=== PATIENT | male | born 1950 | race Caucasian/White ===

== ENCOUNTER 2017-02-19 17:57 | Inpatient (IN) | payer OTHER ==
--- NOTE | ~2017-02-19 | CO ---
Unit #: [id number] #: [id number] Patient: AIME JIMENEZ [id number] [address] [place], [place] [address] [id number] I MR#: [id number] NAME: AIME JIMENEZ ROOM: 479 Age: 66 Sex: M Admission Date: 02/20/2017 : 1950 Attending Physician: Harvinder Lopez Jr., M.D. Primary Care Physician: Paramjit Reece M.D. Consultation Date: 02/22/2017 CONSULTATION REPORT PRE-OP DIAGNOSIS Left shoulder pain. HISTORY OF PRESENT ILLNESS Mr. Jimenez is a 66-year-old gentleman who has been admitted for treatment of a pneumoperitoneum. He sustained an injury to his shoulder prior to presentation on February 19. He awoke in the middle of the night and went to the refrigerator to get something to drink. He fell and struck his left shoulder against the refrigerator door. He is now complaining of continued and ongoing left shoulder pain. He has a history of a previous left shoulder injury, which he describes as a dislocation or separation. This morning he is examined supine in his hospital bed. He states that his pain is somewhat improved and he is noticing improving range of motion of his left shoulder. PAST MEDICAL HISTORY 1. Hypertension. 2. Hyperlipidemia. 3. Depression. PAST SURGICAL HISTORY 1. Placement of a laparoscopic gastric band and repair of a paraesophageal hiatal hernia on 12/05/2012. 2. Removal of Lap-Band with exploratory laparotomy and repair of gastric perforation and G-tube placement on 02/20/17. MEDICATIONS Home medications include Lumigan eyedrops, clonazepam, bupropion, propranolol, Abilify, diclofenac, finasteride, olmesartan, Ambien, Viibryd and [place]. ALLERGIES No known drug allergies. FAMILY HISTORY Diabetes mellitus in his parents. SOCIAL HISTORY The patient is retired. He is on disability. There is no alcohol or tobacco use. He ambulates with a cane occasionally. REVIEW OF SYSTEMS Ten systems were reviewed and are negative except as noted in the HPI. Unit #: [id number] #: [id number] Patient: AIME JIMENEZ PHYSICAL EXAMINATION GENERAL APPEARANCE: Morbidly obese gentleman examined supine in his hospital bed in no acute distress or discomfort. PSYCHIATRIC: Awake, alert and oriented to person, place and time. CARDIAC: Regular rate and rhythm. PULMONARY: No increased work of breathing. HEENT: Normocephalic, atraumatic cranium. NECK: Supple. No lymphadenopathy. No JVD. ABDOMEN: He has a dressing, which is clean, dry and intact. Further exam is deferred. NEUROLOGIC: Intact motor and sensory function in the axillary, medial, ulnar and radial nerves in the left upper extremity. SKIN: No overlying skin changes. No erythema, induration. No ecchymosis. MUSCULOSKELETAL: He has forward elevation greater than 90 degrees with the arm off the bed. He has negative cross-body adduction. He reaches comfortably the top of his head. He is not tender over the AC joint but has a slight stepoff. DIAGNOSTIC STUDIES IMAGING: Plain film radiographs reviewed of the left shoulder. These demonstrate widening of the AC joint with a slight separation, which I would describe as a grade 2 versus 3 on these radiographs. IMPRESSION A 66-year-old gentleman with a history of remote left AC separation. PLAN I think he has aggravated or exacerbated his underlying condition. There appears to be no further displacement of his AC joint. There is no intervention required or needed at this time. I anticipate that his symptoms should resolve uneventfully. If he continues to have shoulder pain or loss of range of motion, we would be happy to see him back in the office as an outpatient for injection if needed and a referral to physical therapy. Thank you for the consult. Dictated by... Dave Gabriel M.D. RUSSELL/farhan TD: 02/22/2017 11:24 JOB #: [id number] CONSULTATION REPORT Page 1 of 1 X Dave Gabriel MD CONSULTATION REPORT
--- NOTE | ~2017-02-19 | BMI ---
[facility] Nutrition Therapy DATE: 02/20/17 Patient: AIME JIMENEZ Physician: DIONI Address: [address] Room/Bed: [address] [place] [address], Zip: [place] [address] Admit Date: 02/20/17 Date of : [birth year] Height: 6 4 Weight: 661 300 HIGH BMI NOTE: DX: 66 yo male admitted for a fracture ANTHROPOMETRICS: Ht: 6'4" Wt: 300.5 kg (661#) BMI: 80.6 DIET: NPO INTERVENTION: 1. NPO RECOMMENDATIONS: 1. Once medically feasible, advance diet as tolerated to healthy heart +2200 kcal diet restriction to promote gradual weight loss towards healthy BMI. RD will f/u per protocol. Respectfully, Iman Rutledge, Dye Padder Operator [employer] [facility] cc: client file
--- NOTE | ~2017-02-19 | DS ---
Unit #: [id number] #: [id number] Patient: AIME JIMENEZ [id number] [address] [place], [place] [address] [id number] I MR#: [id number] NAME: AIME JIMENEZ ROOM: 479 Age: 66 Sex: M Admission Date: 02/20/2017 : 1950 Discharge Date: 02/24/2017 Attending Physician: Harvinder Lopez Jr., M.D. Referring Physician: Julio Lopez M.D. Primary Care Physician: Paramjit Reece M.D. DISCHARGE SUMMARY ADMITTING PHYSICIAN Dr. Harvinder Lopez. CONSULTATIONS 1. Hospitalists. 2. Dr. Gabriel with Orthopaedics. ADMITTING DIAGNOSIS Abdominal pain. DISCHARGE DIAGNOSIS Gastric perforation. SECONDARY DIAGNOSIS Left shoulder pain secondary to left acromioclavicular separation. OTHER DIAGNOSES 1. Hypertension. 2. Depression. PROCEDURE PERFORMED On 02/20/2017, he underwent diagnostic laparoscopy with exploratory laparotomy, removal of gastric band and repair of gastric perforation. BRIEF HOSPITAL COURSE This is a 66-year-old gentleman who sustained a fall two days prior to admission and subsequently developed some severe abdominal pain. He went to [facility] and was noted to have pneumoperitoneum. Because he had a lap band, he was transferred here for further management. Once evaluated here, he was taken for surgery. He was noted to have gastric perforation. This seemed to be unrelated to his lap band. The band was removed because of associated contamination. Postoperatively, he had a fairly uneventful course. He had a swallow study done which did not demonstrate any leak. His GT was clamped and he was started on clears and then advanced to full liquids, which he was tolerating prior to discharge. We also had Orthopaedics see him because of some left shoulder pain and he has a chronic left AC separation. We also consulted hospitalists to manage his medical problems. DISPOSITION Transfer to [facility]. DIET He is to be on a full liquid diet for three days and then resume his home Unit #: [id number] #: [id number] Patient: AIME JIMENEZ diet as tolerated. His G-tube should be clamped. ACTIVITY As tolerated. We will continue with physical therapy and occupational therapy. He is to follow up with Dr. Gama next to have his kandy removed. It is okay for him to shower and he is to continue his home medications. Dictated by... Javed Hansen III, M.D. VCL/alfreda TD: 02/24/2017 09:55 JOB #: [id number] DISCHARGE SUMMARY Page 1 of 1 X Javed Hansen III, MD X DISCHARGE SUMMARY
--- NOTE | ~2017-02-19 | OR ---
Unit #: [id number] #: [id number] Patient: AIME JIMENEZ [id number] [place] [id number] [facility]. [place], [place] [address] [id number] David MR#: [id number] NAME: AIME JIMENEZ ROOM: 479 Date of Procedure: 02/20/2017 Admission Date: 02/20/2017 Surgeon: Sanjeev Gama M.D. : 1950 Attending Physician: Harvinder Lopez Jr., M.D. Referring Physician: Julio Lopez M.D. Primary Care Physician: Paramjit Reece M.D. OPERATIVE REPORT PREOPERATIVE DIAGNOSIS Pneumoperitoneum. POSTOPERATIVE DIAGNOSIS 0.5 cm gastrotomy at gastric fundus. PROCEDURES PERFORMED 1. Diagnostic laparoscopy. 2. Removal of Lap-Band and Lap-Band port. 3. Exploratory laparotomy. 4. Repair of gastric fundus perforation. 5. Gastrostomy tube placement. VIBRATOR EQUIPMENT TESTER Cosme Nj M.D. ANESTHESIA General endotracheal anesthesia. ESTIMATED BLOOD LOSS 100 mL. IV FLUIDS 1500 crystalloid. COMPLICATIONS None. INDICATIONS FOR PROCEDURE The patient is a 66-year-old gentleman, who has had a long-term band, who presents after a fall at his house 2 days ago. He started with left shoulder pain and left upper quadrant abdominal pain. Workup showed pneumoperitoneum without inflammation around the band or tubing. He presents for exploration. DESCRIPTION OF PROCEDURE The patient was taken to the operating theater and placed in a supine position. General anesthesia was induced. The abdomen was prepped and draped. A 10-mm Visiport was placed in the left lower quadrant without difficulty. The abdomen was insufflated to 15 mmHg with CO2. Under direct vision, I identified the band tubing, which appeared to be without infection. There was some greenish yellowish fluid that looked somewhat Unit #: [id number] #: [id number] Patient: AIME JIMENEZ bilious or gastric over the liver as well as the left upper quadrant. I then placed another 5-mm port. I was able to lift the liver up and identify the band buckle. Again, this did not appear to be infected. Thus, I assumed perforated stomach versus ulcer. We thus performed a midline laparotomy without difficulty. The general inspection revealed fluid up over the liver and up over the left lower quadrant. We mobilized what appeared to be some adhesions or inflammation in the left upper quadrant. I followed the band down to the buckle, unbuckled it, cut the band and removed it. There was no staining of the band consistent with an erosion. We mobilized the duodenum and did not see any abnormality. The colon and small bowel appeared normal. We then mobilized up towards the gastric fundus and identified a 0.5-cm tear at the level of suturing of the fundus to the anterior pouch of the previous gastric band. This appeared to be clean and a [id number] inflammatory event. This was repaired with two interrupted 2-0 silk sutures in an inverting-type fashion. I attempted to pass an NG tube, but it was unsuccessful on multiple attempts. Thus, due to this patient's immobility and social situation, I elected to place a gastrostomy tube. This was done using a 24-Urdu Mondragon catheter. This was placed into the anterior stomach. This was secured with the pursestring and then Witzeled into place with 2-0 silk sutures. It was tested for patency and it worked appropriately. I then placed a Roe-Guo drain over the area of our gastrotomy repair. This was brought out through a right upper quadrant incision. This was secured with 2-0 silk sutures. We irrigated thoroughly with normal saline and then closed with interrupted #1 Vicryl and kandy to the skin. The patient tolerated the procedure well and sent to recovery room in good condition. Dictated by... Bry Hernandez/jody TD: 02/21/2017 05:38 JOB #: [id number] OPERATIVE REPORT Page 1 of 1 X Sanjeev Gama MD X PROCEDURE OPERATIVE NOTE
--- NOTE | ~2017-02-19 | CO ---
Unit #: [id number] #: [id number] Patient: AIME JIMENEZ [id number] [address] [place], [place] [address] [id number] I MR#: [id number] NAME: AIME JIMENEZ ROOM: 479 Age: 66 Sex: M Admission Date: 02/20/2017 : 1950 Attending Physician: Harvinder Lopez Jr., M.D. Primary Care Physician: Paramjit Reece M.D. Requesting Physician: Kourtney Porter M.D. Consultation Date: 02/21/2017 CONSULTATION REPORT REASON FOR CONSULTATION Left shoulder pain. HISTORY OF PRESENT ILLNESS The patient is a pleasant 66-year-old who I was asked to see in consultation for left shoulder pain. The patient reports he was in his usual state of mind Monday when he woke up from sleep around 2:30 in the morning and fell against the refrigerator. He had gotten up to get something to drink. The patient denied any loss of consciousness or chest pain. Patient reports that he has had a long history of left shoulder pain. The patient was at [place] he reports in the past and was told he had a shoulder separation. The patient reports today his pain is a whole lot better. When this episode/injury happened, his pain was a 10 on a scale of 1-10. Today, his pain is a 3 or a 4 on a scale of 1-10. He denies any numbness, tingling, or weakness in his left upper extremity. He does feel like his left shoulder has improved dramatically. The patient did undergo exploratory laparotomy with removal of Lap-Band and Lap-Band port, as well as repair of gastric fundus perforation and gastrostomy tube placement. PAST MEDICAL HISTORY 1. Hypertension. 2. Hyperlipidemia. 3. Depression. 4. History of Lap-Band. PAST SURGICAL HISTORY 1. Removal of Lap-Band. 2. History of Lap-Band. 3. Repair of gastric perforation. 4. Gastrostomy tube. 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 He denies any alcohol. FAMILY HISTORY Parents both have diabetes. ALLERGIES No known drug allergies. HOME MEDICATIONS 1. Lumigan. Unit #: [id number] #: [id number] Patient: AIME JIMENEZ 2. Clonazepam. 3. Bupropion. 4. Propranolol. 5. Abilify. 6. Diclofenac. 7. Finasteride. 8. Ambien. 9. Viibryd. 10. Hydrocodone. 11. Olmesartan REVIEW OF SYSTEMS CONSTITUTIONAL: Denies any weight loss or weight gain recently. EYES: Denies any double vision or blurred vision. LUNGS: Denies any shortness of air or chronic cough. CARDIOVASCULAR: Denies any chest pain or irregular heartbeat. ABDOMEN: Admits that he had some pain but improved. MUSCULOSKELETAL: Admits to some left shoulder pain, but he admits that this is chronic. It just got worse since he bumped into the refrigerator. EXTREMITIES: He denies any numbness or tingling. NEUROLOGIC: He denied any loss of consciousness. Twelve complete systems in total were reviewed and negative other than above. DIAGNOSTIC STUDIES LABORATORY: Sodium 135, potassium 4.5, chloride 103, CO2 of 23, BUN 30, creatinine 1.3, and glucose of 143. WBC 19 and hemoglobin 14.3. IMAGING: X-rays of his left shoulder did show elevation of the distal clavicle with respect to the acromion with widening of the AC joint. ASSESSMENT Left shoulder separation. The patient does feel like this is chronic. PLAN Discussed with the patient options one which includes trying cortisone injection. The patient reports his pain is much improved. I will check with him in the morning and see that his pain continues to improve. Dictated by... Miki Oneal P.A.-C- for Bry Miner TD: 02/21/2017 22:13 JOB #: [id number] CONSULTATION REPORT Page 1 of 1 X X CONSULTATION REPORT
--- NOTE | ~2017-02-19 | CR229 ---
[facility] A Service of [facility] & [facility] RADIOLOGY TEXT RESULTS PATIENT: AIME JIMENEZ LOCATION: [place] [address]- : [birth year] UNIT #: [id number] AGE: [address]: Harvinder Lopez MD SEX: M ORDER DR: [id number] [facility] [address] [facility] [place] [facility]. [place], [place] [address] [id number] I MR#: [id number] Acc #: [id number] NAME: AIME JIMENEZ : 1950 SEX: M STUDY DATE/TIME: 02/21/2017 8:08 UNIT: [facility] [place] [facility] ROOM: [facility] STUDY DESCRIPTION: CR Shoulder Min 2 View Lt Attending Physician: Harvinder Lopez Jr., M.D. Referring Physician: Julio Lopez M.D. Ordering Physician: Sanjeev Gama M.D. Primary Care Physician: Paramjit Reece M.D. MEDICAL IMAGING REPORT This report is preliminary unless electronic signature is present EXAM Left shoulder 2 views INDICATION Shoulder pain since Monday after falling. COMPARISON No comparisons FINDINGS There is no acute fracture. There is no glenohumeral joint dislocation. There is some widening of the AC joint which may represent an AC joint injury. Please correlate with location of the patient's pain. There also appears to be some elevation of the distal clavicle with respect to the acromion. IMPRESSION There is elevation of the distal clavicle with respect to the acromion and some widening of the AC joint. The findings are suggestive of an AC joint injury. Correlate with location of patient's pain. Dictated by... Sukhdeep Griggs M.D. THIS IS AN ELECTRONICALLY VERIFIED REPORT Sukhdeep Griggs M.D. at 02/22/2017 5:12 PM Ivon TD: 02/21/2017 09:45 JOB #: [id number] MEDICAL IMAGING REPORT Page 1 of 1 COPY
--- NOTE | ~2017-02-19 | CO ---
Unit #: [id number] #: [id number] Patient: AIME JIMENEZ [id number] [place] [address] [facility]. [place], [place] [address] [id number] I MR#: [id number] NAME: AIME JIMENEZ ROOM: 479 Age: 66 Sex: M Admission Date: 02/20/2017 : 1950 Attending Physician: Harvinder Lopez Jr., M.D. Primary Care Physician: Paramjit Reece M.D. Consultation Date: 02/20/2017 CONSULTATION REPORT BRIEF HISTORY The patient is a 66-year-old gentleman who presents with acute onset of left shoulder pain and left abdominal pain after a fall two days ago. He said he fell into the handle of a refrigerator and since that time he has had increasing shoulder pain. No fevers or chills. He has had normal eating habits, no vomiting, no hematemesis. Normal bowel movements. PAST HISTORY Significant for lap band in 2012. He had been doing fairly well with this since that time. He is on no chronic medications. SOCIAL HISTORY No smoking, no alcohol. FAMILY HISTORY Negative for GI malignancy. REVIEW OF SYSTEMS No cardiopulmonary complaints at this time. All ten systems reviewed and negative. PHYSICAL EXAMINATION GENERAL: He is awake, alert, appropriate. VITAL SIGNS: Currently afebrile. HEENT: Unremarkable. NECK: Supple. No JVD. Trachea midline. LUNGS: Clear to auscultation bilaterally. Breath sounds symmetric. CARDIOVASCULAR: Regular rate and rhythm. ABDOMEN: Soft. It is tender mainly in the left upper quadrant with what appears to be some point tenderness in this region. Questionable early rebound. EXTREMITIES: No clubbing, cyanosis or edema. DIAGNOSTIC STUDIES LABORATORY: Labs show a white count of 12, hemoglobin normal. Liver function studies are normal. IMAGING: CT scan shows pneumoperitoneum but no mention of inflammation around the band. ASSESSMENT AND PLAN Acute abdomen with pneumoperitoneum: Unsure of etiology. Possible perforated ulcer versus colonic event versus band erosion. Would plan for diagnostic laparoscopy. Discussed multiple scenarios but he understands Unit #: [id number] #: [id number] Patient: AIME JIMENEZ that we may remove the band depending upon findings. We also discussed the possibility of converting to exploratory laparotomy. Dictated by... Bry Hernandez TD: 02/20/2017 08:34 JOB #: [id number] CONSULTATION REPORT Page 1 of 1 X Sanjeev Gama MD CONSULTATION REPORT
--- NOTE | ~2017-02-19 | CR264 ---
[facility] A Service of [facility] & [facility] RADIOLOGY TEXT RESULTS PATIENT: AIME JIMENEZ LOCATION: [facility] 479-01 : [birth year] UNIT #: [id number] AGE: [address]: Harvinder Lopez MD SEX: M ORDER DR: [id number] [facility] [address] [place], [place] [address] [id number] I MR#: [id number] Acc #: [id number] NAME: AIME JIMENEZ : 1950 SEX: M STUDY DATE/TIME: 02/22/2017 9:03 UNIT: [facility] ROOM: [facility] STUDY DESCRIPTION: CR Upper GI Series W KUB Attending Physician: Harvinder Lopez Jr., M.D. Referring Physician: Julio Lopez M.D. Ordering Physician: Sanjeev Gama M.D. Primary Care Physician: Paramjit Reece M.D. MEDICAL IMAGING REPORT This report is preliminary unless electronic signature is present EXAM Upper GI series 02/22/2017 INDICATIONS Recent gastric band removal due to a fundal rupture. Evaluation for an anastomotic leak. FINDINGS Single contrast Gastrografin upper GI series was performed. There is no focal abnormalities in the proximal to mid thoracic esophagus. There is some mild narrowing of the distal thoracic esophagus at the EG junction. This is likely due to some edema from the recent surgery. There is no evidence of a gastric leak at the EG junction or at the gastric fundus. Contrast does pass through the stomach into the duodenum. Fluoroscopic time 2.7 minutes. 15 images acquired. IMPRESSION 1. No evidence of esophageal or gastric leak. 2. Mild narrowing the distal thoracic esophagus near the EG junction is likely due to edema due to the recent surgery. STAT * RESULT Dictated by... Eb Wisdom M.D. THIS IS AN ELECTRONICALLY VERIFIED REPORT Eb Wisdom M.D. at 02/22/2017 2:45 PM RPC/to [facility] A Service of [facility] & [facility] RADIOLOGY TEXT RESULTS PATIENT: AIME JIMENEZ LOCATION: [facility] 479-01 : [birth year] UNIT #: [id number] AGE: [address]: Harvinder Lopez MD SEX: M ORDER DR: TD: 02/22/2017 11:17 JOB #: [id number] MEDICAL IMAGING REPORT Page 1 of 1 COPY
--- NOTE | ~2017-02-19 | CO ---
Unit #: [id number] #: [id number] Patient: AIME JIMENEZ [id number] [facility] [address] [facility]. [place], [place] [address] [id number] MR#: [id number] NAME: AIME JIMENEZ ROOM: 479 Age: 66 Sex: M Admission Date: 02/20/2017 : 1950 Attending Physician: Harvinder Lopez Jr., M.D. Primary Care Physician: Paramjit Reece M.D. Consultation Date: 02/21/2017 CONSULTATION REPORT REASON FOR CONSULTATION Medical management. HPI The patient is a 66-year-old male with past medical history of hypertension, hyperlipidemia, depression, and obesity who was admitted by Dr. Lopez for pneumoperitoneum. The patient states that he was in his usual state of health until February 19, 2017, when he woke from sleep around 2:30 and fell into the refrigerator. He states that he had gotten up to get something to drink and somehow fell on the refrigerator door. There was no loss of consciousness, but he did have pain in the shoulder as well as his abdomen. He went back to sleep. When he woke again at 5:00 a.m., he had persistent pain and so presented to [facility] for evaluation. At [facility], CT of the abdomen and pelvis was done and showed free intraperitoneal air suggesting a bowel perforation. He was transferred to [facility] for admission. On February 20, 2017, the patient underwent exploratory laparotomy with removal of LAP-BAND and LAP-BAND port as well as repair of gastric fundus perforation and gastrostomy tube placement. HIPS was consulted for medical management. Specifically, the patient's heart rate has been persistently in the 110s-120s postoperatively. Of note, the patient is currently NPO. He typically takes propranolol 120 mg daily as well as olmesartan 40 mg daily for blood pressure. The patient denies any fever. No cough or cold symptoms. No chest pain. No difficulty breathing. No vomiting or diarrhea. He states that his last bowel movement was on February 19, 2017. PAST MEDICAL HISTORY 1. Hypertension. 2. Hyperlipidemia. 3. Depression. PAST SURGICAL HISTORY Exploratory laparotomy with removal of LAP-BAND, repair of gastric perforation, and G tube placement. 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 He is currently on disability. He denies tobacco or alcohol use. He has a cane that he uses sometimes. Unit #: [id number] #: [id number] Patient: AIME JIMENEZ FAMILY HISTORY Notable for both parents having diabetes. ALLERGIES No known allergies. MEDICATIONS Home medications include: 1. Lumigan. 2. Clonazepam. 3. Bupropion. 4. Propranolol. 5. Abilify. 6. Diclofenac. 7. Finasteride. 8. Olmesartan. 9. Ambien. 10. Viibryd. 11. Hydrocodone/acetaminophen. REVIEW OF SYSTEMS A complete review of systems is negative, except as indicated in the HPI. DIAGNOSTIC STUDIES IMAGING: CT of the abdomen and pelvis from [place] showed findings concerning for pneumoperitoneum. Left shoulder x-ray from this morning shows elevation of the distal clavicle with widening of AC joint suggestive of AC joint injury. LABORATORY: From today, complete blood count notable for white blood cell count of 19. Basic metabolic panel notable for glucose of 143; BUN and creatinine 30 and 1.3, respectively; and calcium of 7.9. PHYSICAL EXAMINATION VITAL SIGNS: Temperature is 98.1, pulse 125, respirations 16, blood pressure 153/81, and oxygen saturation is 93%. GENERAL: The patient is a male who is awake and alert. HEENT: The head is atraumatic. Mucous membranes are dry. NECK: Supple. Trachea is midline. CARDIOVASCULAR: Regular rate and rhythm. LUNGS: Relatively clear to auscultation bilaterally with no increased work of breathing. ABDOMEN: Appropriately tender. Bowel sounds are somewhat decreased. He does have a HP drain as well as a bandage that is clean, dry, and intact. Additionally, he has a G tube. EXTREMITIES: Nontender with no pedal edema. NEUROLOGIC: The patient is awake and alert. He follows commands. PSYCH: Mood and affect are normal. The patient is cooperative. SKIN: Skin of examined areas is warm and dry. ASSESSMENT The patient is a 66-year-old male with: 1. Postop day #1, status post exploratory laparotomy, removal of LAP-BAND, repair of gastric perforation, and gastrostomy tube placement. 2. Tachycardia. The patient has not been receiving propranolol. 3. Leukocytosis. Unit #: [id number] #: [id number] Patient: AIME JIMENEZ 4. Acute kidney injury. The patient's creatinine was 1 on November 23, 2012, and it is 1.3 today. 5. Left shoulder pain with x-ray findings concerning for possible injury involving the AC joint. 6. Hypertension. 7. Hyperlipidemia. 8. Depression. 9. Increased risk of obstructive sleep apnea. PLAN 1. Regarding tachycardia, I have ordered Lopressor as well as an EKG and will continue to monitor heart rate closely. 2. Regarding leukocytosis, I have ordered blood cultures as well as a urinalysis and chest x-ray. Additionally, I have ordered incentive spirometry. 3. Regarding increased risk of obstructive sleep apnea, I have ordered the obstructive sleep apnea protocol. 4. Regarding left shoulder pain and possible AC joint injury, I have consulted orthopedics. Thank you very much for the consultation. We will follow the patient along closely with you. Dictated by... Kourtney Porter M.D. MARIO ALBERTO/aishwarya TD: 02/21/2017 13:48 JOB #: [id number] CONSULTATION REPORT Page 1 of 1 X Kourtney Porter MD X CONSULTATION REPORT
--- NOTE | ~2017-02-19 | CR72 ---
[facility] A Service of [facility] & [facility] RADIOLOGY TEXT RESULTS PATIENT: AIME JIMENEZ LOCATION: [place] [address] : [birth year] UNIT #: [id number] AGE: [address]: Harvinder Lopez MD SEX: M ORDER DR: [id number] [facility] [address] [facility]. [place], [place] [address] [id number] I MR#: [id number] Acc #: [id number] NAME: AIME JIMENEZ : 1950 SEX: M STUDY DATE/TIME: 02/21/2017 14:52 UNIT: [facility] ROOM: [facility] STUDY DESCRIPTION: CR Chest Single View Portable Attending Physician: Harvinder Lopez Jr., M.D. Referring Physician: Julio Lopez M.D. Ordering Physician: Kourtney Porter M.D. Primary Care Physician: Paramjit Reece M.D. MEDICAL IMAGING REPORT This report is preliminary unless electronic signature is present EXAM Portable chest INDICATIONS Shortness of breath today. COMPARISON 11/23/2012 FINDINGS Low-volume inspiration with bibasilar atelectasis. There may be a small left pleural effusion. Heart size stable. IMPRESSION Low-volume inspiration with bibasilar atelectasis. Possible small left pleural effusion. Dictated by... Sukhdeep Griggs M.D. THIS IS AN ELECTRONICALLY VERIFIED REPORT Sukhdeep Griggs M.D. at 02/22/2017 5:13 PM PEBBLES/niko TD: 02/21/2017 19:34 JOB #: [id number] MEDICAL IMAGING REPORT Page 1 of 1 COPY
--- NOTE | ~2017-02-19 | EKG ---
PATIENT: AIME JIMENEZ UNIT #: [id number] Ventricular Rate: 120 BPM Atrial Rate: 120 BPM P-R Interval: 146 ms QRS Duration: 76 ms Q-T Interval: 304 ms QTC Calculation(Bezet): 429 ms P Haslett: 31 degrees Calculated R Haslett: 35 degrees Calculated T Haslett: 23 degrees Diagnosis Line: Sinus tachycardia Diagnosis Line: Otherwise normal ECG Diagnosis Line: When compared with ECG of 23-NOV-2012 08:46, Diagnosis Line: Vent. rate has increased BY 45 BPM Diagnosis Line: Confirmed by MARIIA HERNANDEZ MD ([id number]) on 02/22/2017 Diagnosis Line: 10:04:09 AM INTERPRETING MD: MARY LEONARDO
[~2017-02-19 17:57] MED LIST: ABILIFY PO; AMBIEN10 MG PO; CALCIUM-MAGNES1 EAC1 PO; FLEXERIL10 MG PO; HYDROCODON-ACE1 EAC9 PO; INDERAL LA120 MG PO; NORVASC10 MG PO; PRAVASTATIN SOD40 MG PO; PRILOSEC20 M1 PO; VITAMIN B-121000 MCG PO; VOLTAREN75 MG PO; WELLBUTRIN XL PO; XANAX1 MG PO
[2017-02-20 03:20] LABS: BASOPHIL% 0.2 % (0-2.5); HEMATOCRIT 50.5 % (38.0-50.0); HEMOGLOBIN 16.5 gm/dL (13.0-16.0); LYMPHOCYTE# 0.9 X10e3 (1.0-3.5); LYMPHOCYTE% 4.8 % (17.0-45.0); MEAN CELL VOLUME 91.7 FL (83-96); MEAN CORPUSCULAR HGB CONC 32.8 g/dL (30-36); MEAN PLATELET VOLUME 7.7 FL (6.5-11.5); MONOCYTE# 0.8 X10e3 (0-1.0); MONOCYTE% 4.1 % (3.0-12.0); NEUTROPHIL# 17.7 X10e3 (1.5-7.1); NEUTROPHIL% 90.9 % (40-75); PLATELET COUNT 277 X10e3 (140-420); WHITE BLOOD COUNT 19.5 X10e3 (4.0-10.5)
[2017-02-20 03:21] LABS: DIFF IND YES
[2017-02-20 03:39] LABS: ALBUMIN SERUM 3.5 g/dL (3.5-5.0); BILIRUBIN,TOTAL 1.3 mg/dL (0.2-2.0); CALCIUM SERUM 7.8 mg/dL (8.4-10.2); GLOM FILT RATE Estimated 78.6 mL/min (>60); POTASSIUM 4.9 mmol/L (3.5-5.1); PROTEIN TOTAL SERUM 6.7 g/dL (6.0-8.3)
[2017-02-20 03:40] LABS: PLATELET ESTIMATE NORMAL (NORMAL)
[2017-02-20 03:41] LABS: ANISOCYTOSIS SL
[2017-02-21 03:47] LABS: BASOPHIL% 0.1 % (0-2.5); HEMATOCRIT 43.5 % (38.0-50.0); LYMPHOCYTE# 0.8 X10e3 (1.0-3.5); LYMPHOCYTE% 4.1 % (17.0-45.0); MEAN CELL VOLUME 92.5 FL (83-96); MEAN CORPUSCULAR HEMOGLOBIN 30.5 PG (28-34); MEAN PLATELET VOLUME 8.1 FL (6.5-11.5); MONOCYTE# 1.1 X10e3 (0-1.0); MONOCYTE% 5.8 % (3.0-12.0); NEUTROPHIL# 17.1 X10e3 (1.5-7.1); PLATELET COUNT 227 X10e3 (140-420); RED CELL DISTRIBUTION WIDTH 14.4 % (11.0-15.5)
[2017-02-21 03:49] LABS: DIFF IND NO; HEMOGLOBIN 14.3 gm/dL (13.0-16.0)
[2017-02-21 04:03] LABS: BUN/CREATININE RATIO 23.07; CALCIUM SERUM 7.9 mg/dL (8.4-10.2); CREATININE SERUM 1.3 mg/dL (0.6-1.4); GLOM FILT RATE Estimated 57.3 mL/min (>60); POTASSIUM 4.5 mmol/L (3.5-5.1)
[2017-02-21] MEDS ORDERED: CLONAZEPAM2 MG PO (08:07)
[2017-02-21] MEDS ORDERED: LUMIGAN2.5 ML OU (08:07)
[2017-02-21] MEDS ORDERED: BUPROPION XL300 M1 PO (08:11)
[2017-02-21] MEDS ORDERED: ABILIFY5 MG PO (08:13)
[2017-02-21] MEDS ORDERED: INDERAL XL120 MG PO (08:13)
[2017-02-21] MEDS ORDERED: VOLTAREN75 MG PO (08:14)
[2017-02-21] MEDS ORDERED: FINASTERIDE5 M1 PO (08:15)
[2017-02-21] MEDS ORDERED: AMBIEN10 MG PO (08:16)
[2017-02-21] MEDS ORDERED: OLMESARTAN MEDO40 MG PO (08:16)
[2017-02-21] MEDS ORDERED: VIIBRYD40 MG PO (08:17)
[2017-02-21] MEDS ORDERED: HYDROCODON-ACE1 EAC5 PO (08:17)
[2017-02-21 19:33] LABS: URINE APPEARANCE CLEAR; URINE BILIRUBIN NEG (NEG); URINE BLOOD 3+ (NEG); URINE COLOR YELLOW; URINE GLUCOSE NEG (NEG); URINE KETONE NEG (NEG); URINE LEUKOCYTE ESTERASE NEG (NEG); URINE NITRATE NEG (NEG); URINE PH 6.5 (5-8); URINE PROTEIN 1+ (NEG); URINE SPECIFIC GRAVITY 1.014 (1.003-1.035); URINE UROBILINOGEN 0.2 MG/DL (NEG)
[2017-02-21 19:35] LABS: URINE BACTERIA AUWI NEG (NEGATIVE); URINE SQUAMOUS EPITHELIAL CELL NONE SEEN /[HPF]; UWBCS1 AUWI 0-2 (0-5)
[2017-02-22 03:34] LABS: BASOPHIL% 0.2 % (0-2.5); EOSINOPHIL# 0.1 X10e3 (0-0.7); EOSINOPHIL% 0.5 % (0.0-7.0); HEMATOCRIT 41.6 % (38.0-50.0); HEMOGLOBIN 13.5 gm/dL (13.0-16.0); LYMPHOCYTE# 1.2 X10e3 (1.0-3.5); LYMPHOCYTE% 6.6 % (17.0-45.0); MEAN CORPUSCULAR HEMOGLOBIN 30.1 PG (28-34); MEAN CORPUSCULAR HGB CONC 32.4 g/dL (30-36); MEAN PLATELET VOLUME 7.8 FL (6.5-11.5); MONOCYTE# 1.3 X10e3 (0-1.0); MONOCYTE% 7.3 % (3.0-12.0); NEUTROPHIL# 15.7 X10e3 (1.5-7.1); NEUTROPHIL% 85.4 % (40-75); PLATELET COUNT 236 X10e3 (140-420); RED BLOOD COUNT 4.47 X10e (3.90-5.60); RED CELL DISTRIBUTION WIDTH 14.2 % (11.0-15.5); WHITE BLOOD COUNT 18.4 X10e3 (4.0-10.5)
[2017-02-22 03:35] LABS: PROTHROMBIN TIME (PATIENT) 10.3 SECONDS (9.6-11.5)
[2017-02-22 03:36] LABS: DIFF IND NO
[2017-02-22 03:56] LABS: ALBUMIN SERUM 2.4 g/dL (3.5-5.0); BILIRUBIN,TOTAL 0.4 mg/dL (0.2-2.0); BUN/CREATININE RATIO 22.22; CREATININE SERUM 0.9 mg/dL (0.6-1.4); GLOM FILT RATE Estimated 89.3 mL/min (>60); POTASSIUM 4.3 mmol/L (3.5-5.1); PROTEIN TOTAL SERUM 5.5 g/dL (6.0-8.3)
[2017-02-24 04:22] LABS: BASOPHIL% 0.3 % (0-2.5); EOSINOPHIL# 0.3 X10e3 (0-0.7); EOSINOPHIL% 2.4 % (0.0-7.0); HEMATOCRIT 43.5 % (38.0-50.0); HEMOGLOBIN 14.4 gm/dL (13.0-16.0); LYMPHOCYTE# 1.6 X10e3 (1.0-3.5); LYMPHOCYTE% 14.4 % (17.0-45.0); MEAN CELL VOLUME 91.7 FL (83-96); MEAN CORPUSCULAR HEMOGLOBIN 30.3 PG (28-34); MEAN CORPUSCULAR HGB CONC 33.1 g/dL (30-36); MEAN PLATELET VOLUME 7.2 FL (6.5-11.5); MONOCYTE# 1.4 X10e3 (0-1.0); NEUTROPHIL% 70.9 % (40-75); PLATELET COUNT 283 X10e3 (140-420); RED BLOOD COUNT 4.74 X10e (3.90-5.60); RED CELL DISTRIBUTION WIDTH 14.1 % (11.0-15.5); WHITE BLOOD COUNT 11.2 X10e3 (4.0-10.5)
[2017-02-24 04:24] LABS: DIFF IND YES
[2017-02-24 04:36] LABS: BUN/CREATININE RATIO 15.71; CALCIUM SERUM 8.4 mg/dL (8.4-10.2); CREATININE SERUM 0.7 mg/dL (0.6-1.4); GLOM FILT RATE Estimated 99.1 mL/min (>60); POTASSIUM 4.1 mmol/L (3.5-5.1)
[2017-02-24 04:46] LABS: ANISOCYTOSIS SL; PLATELET ESTIMATE NORMAL (NORMAL)
== END 2017-02-24 14:30 | DRG 326 ==
LOC: C4C 17:57 → UNDOADMIN 17:57 → C4C 02-20 00:40
PROVIDERS: Family Medicine; Surgery
PROC: 0WJP4ZZ Inspection of Gastrointestinal Tract, Percutaneous Endoscopic Approach (ICD-10-PCS; 2017-02-20)
PROC: 0DH60UZ Insertion of Feeding Device into Stomach, Open Approach (ICD-10-PCS; 2017-02-20)
PROC: 0DP60CZ Removal of Extraluminal Device from Stomach, Open Approach (ICD-10-PCS; principal; 2017-02-20 11:00)
PROC: 0DQ60ZZ Repair Stomach, Open Approach (ICD-10-PCS; 2017-02-20 11:00)
DX: S36.39XA Other injury of stomach, initial encounter (principal); S31.619A Laceration without foreign body of abdominal wall, unspecified quadrant with penetration into peritoneal cavity, initial encounter; N17.9 Acute kidney failure, unspecified; S43.102A Unspecified dislocation of left acromioclavicular joint, initial encounter; I10 Essential (primary) hypertension; D72.829 Elevated white blood cell count, unspecified; W18.30XA Fall on same level, unspecified, initial encounter; Y92.010 Kitchen of single-family (private) house as the place of occurrence of the external cause; F32.9 Major depressive disorder, single episode, unspecified; E78.5 Hyperlipidemia, unspecified; E66.9 Obesity, unspecified; Z83.3 Family history of diabetes mellitus; R00.0 Tachycardia, unspecified
CPT/HCPCS: 71010; 73030; 74241; 80048; 80053; 81003; 84443; 85025; 85610; 87040; 87086; 93005; 94760; 97110; 97116; 97163; 97167; 97530; 97535; G8978-GP; G8979-GP; G8980-GP; G8987-GO; G8988-GO; J0330; J1100; J1335; J1644; J2250; J2270; J2405; J2543; J2550; J2710; J3010; J3490